=== PATIENT | male | born 2000 | race Caucasian/White ===

== ENCOUNTER 2022-07-25 10:33 | Emergency (ER) | payer BC, SELFPAY ==
--- NOTE | 2022-07-25 10:34 | ED.ANXIETY ---
HPI - Anxiety General Chief Complaint: Anxiety Stated Complaint: ANXIETY Time Seen by Provider: 07/25/22 10:50 Source: patient Mode of arrival: ambulatory Limitations: no limitations History of Present Illness HPI narrative: 21-year-old female presents with concern for anxiety. She reports she has been having panic attacks at least weekly all the way up to 2-3 times daily for several months. She reports she was seen at a mental health clinic and was prescribed buspirone. Reports that did not improve her symptoms. She reports her episodes last anywhere from 2 minutes to 15 minutes. She reports she has chest pain and shortness of breath during the symptoms. She reports she is transgender and is transitioning and has been taking estrogen. She reports has been taking estrogen for approximately 5 years but approximately 2 months ago she started using a different form of injectable estrogen. She reports she has spoken with her automatic lathe operator about the anxiety and they told her her estrogen levels appear normal. MD complaint: anxiety Related Data Home Medications Medication Instructions Recorded Confirmed estradiol 2 mg tablet mg 07/25/22 estradiol valerate 20 mg/mL mg IM 07/25/22 intramuscular oil Allergies Allergy/AdvReac Type Severity Reaction Status Date / Time No Known Allergies Allergy Mild Unverified 09/11/09 17:14 Review of Systems Review of Systems: CONSTITUTIONAL: Denies malaise, chills, sweats, or fever. CARDIOVASCULAR: Denies current chest pain, palpitations, or edema. RESPIRATORY: Denies current dyspnea. PSYCHIATRIC: Reports anxiety All systems reviewed & are unremarkable except as noted in HPI and below PMFSH Social History Social History Smoking status: Never smoker Alcohol intake: never Comments At time of signature, agree with nursing past medical, surgical, social and family history. There is no relevant family history pertinent to the presenting complaint Exam Narrative: GENERAL: Well-appearing, well-nourished, and in no acute distress. HEAD: Normocephalic, atraumatic. EYES: PERRLA, sclera clear ENT: Nares clear. Mucous membranes moist. NECK: Supple. CHEST: No respiratory distress. Clear to auscultation. No bony deformities, no asymmetry. Speaks in full sentences. HEART: Regular rate and rhythm. No murmur heard. SKIN: Warm, dry, no visible rash. NEURO: Alert and oriented x3. PSYCH: Appears tearful Course Course Emergency Course: The patient need for follow-up for ongoing care for her anxiety, she is agreeable Patient is aware of diagnosis, understands and agrees to treatment plan. Anticipatory guidance given. Patient agrees to follow-up as directed and is aware of reasons to seek care at the emergency department. Portions of this record may have been created with voice recognition software Level of Care: Express Care Visit Vital Signs Vital signs: Reviewed. MDM - Anxiety MDM Narrative Medical decision making narrative: Exam findings show no acute concerns or changes; patient is non-toxic appearing and is in no distress. Patient is appropriate for outpatient treatment and follow-up. Differential Diagnosis Differential diagnosis: Likely panic disorder and acute anxiety Critical Care Time Critical Care Time Critical Care Time: No Discharge Plan Discharge Clinical Impression: Anxiety Patient Disposition: Home, Self-Care Condition: Stable Instructions: Anxiety (ED) Additional Instructions: Make a follow-up appointment with your primary care provider for further evaluation and treatment of your anxiety. If you have any chest pain or shortness of breath that is not resolving you should go to the emergency room. Take hydroxyzine as prescribed. [place] lorazepam for episodes that are not resolving on their own or with hydroxyzine. Having an established primary care provider is essential to your health. Please call [phone] for help finding a primary
[2022-07-25 10:40] VITALS: BP 110/70; PULSE 79; RESP 16; TEMP 37.3; O2SAT 98
== END 2022-07-25 11:15 | disposition home or self-care (01) ==
PROVIDERS: Emergency Provider Nurse Practitioner; PCP Family Medicine
DX: F41.9 Anxiety disorder, unspecified (principal)
CPT/HCPCS: 99203; G0463

== ENCOUNTER 2022-07-27 15:36 | Outpatient (CLI) | payer BC, SELFPAY ==
[2022-07-27 20:31] LABS: HIV 1/2 Ab P24 Ag Result Negative (Negative)
[2022-07-28 16:51] LABS: Rapid Plasma Reagin Non-Reactive (NonReactive)
== END 2022-07-27 15:37 | disposition home or self-care (01) ==
PROVIDERS: PCP Emergency Medicine; Visit Provider Emergency Medicine
DX: Z11.3 Encounter for screening for infections with a predominantly sexual mode of transmission (principal)
CPT/HCPCS: 36415; 86592; 86703; 87491; 87591; G0432

== ENCOUNTER 2022-09-13 15:30 | Outpatient (CLI) | payer BC, SELFPAY ==
[2022-09-13 19:38] LABS: Alanine Aminotransferase 30 U/L (6-50); Albumin Level 4.5 g/dL (3.5-5.1); Alkaline Phosphatase 71 U/L (38-126); Anion Gap 16 mmol/L (8-16); Aspartate Amino Transferase 30 U/L (17-59); Bilirubin,Total 0.3 mg/dL (0.2-1.3); Blood Urea Nitrogen 8 mg/dL (9-20); CRP < 0.5 mg/dL (<1.0); Calcium 9.1 mg/dL (8.4-10.2); Carbon Dioxide 25 mmol/L (22-30); Chloride 101 mmol/L (98-107); Estimated Glomerular Filt Rate > 60; Glucose 118 mg/dL (65-110); Potassium 3.7 mmol/L (3.4-5.0); Sodium 142 mmol/L (137-145)
[2022-09-13 19:54] LABS: Basophils Absolute Auto 0.1 K/mm3 (0.0-0.1); Basophils Percent Auto 0.5 % (0.2-1.2); Eosinophils Absolute Auto 0.2 K/mm3 (0-0.3); Eosinophils Percent Auto 2.2 % (0-4.4); Hemoglobin 11.9 g/dL (14.0-18.0); Immature Granulocyte Absolute 0.03 K/mm3 (0.00-0.031); Immature Granulocyte Percent A 0.3 % (0-0.5); Lymphocytes Absolute Auto 2.81 K/mm3 (0.9-3.2); Lymphocytes Percent Auto 25.5 % (18.3-44.2); Mean Corpuscular HGB Conc 33.1 g/dl (32-36); Mean Corpuscular Hemoglobin 29.6 pg (26-34); Mean Corpuscular Volume 89.6 fl (80-100); Mean Platelet Volume 9.9 fl (7.4-10.4); Monocytes Absolute Auto 0.9 K/mm3 (0.1-0.6); Monocytes Percent Auto 7.9 % (2.6-8.5); Neutrophils Percent Auto 63.6 % (45.5-73.1); Platelet Count Result 378 k/mm3 (150-375); Red Blood Count 4.02 M/mm3 (4.6-6.20); Red Cell Distribution Width 13.1 % (11.5-14.5)
[2022-09-13 20:25] LABS: Erythrocyte Sedimentation Rate 15 mm/hr (0-20)
== END 2022-09-13 15:31 | disposition home or self-care (01) ==
LOC: ANHGOSHLAB 15:31
PROVIDERS: PCP Emergency Medicine; Visit Provider Emergency Medicine
DX: M26.69 Other specified disorders of temporomandibular joint (principal); R51.9 Headache, unspecified
CPT/HCPCS: 36415; 80053; 85025; 85652; 86140

== ENCOUNTER 2022-09-14 16:00 | Outpatient (CLI) | payer BC, SELFPAY ==
[2022-09-14 18:43] LABS: Basophils Absolute Auto 0.1 K/mm3 (0.0-0.1); Basophils Percent Auto 0.5 % (0.2-1.2); Eosinophils Absolute Auto 0.4 K/mm3 (0-0.3); Eosinophils Percent Auto 3.5 % (0-4.4); Hematocrit 34.8 % (42.0-52.0); Hemoglobin 11.6 g/dL (14.0-18.0); Immature Granulocyte Absolute 0.03 K/mm3 (0.00-0.031); Immature Granulocyte Percent A 0.3 % (0-0.5); Lymphocytes Absolute Auto 3.06 K/mm3 (0.9-3.2); Mean Corpuscular HGB Conc 33.3 g/dl (32-36); Mean Corpuscular Hemoglobin 30.1 pg (26-34); Mean Corpuscular Volume 90.4 fl (80-100); Mean Platelet Volume 9.5 fl (7.4-10.4); Monocytes Absolute Auto 0.9 K/mm3 (0.1-0.6); Monocytes Percent Auto 8.1 % (2.6-8.5); Neutrophils Absolute Auto 6.5 K/mm3 (1.3-6.7); Neutrophils Percent Auto 59.6 % (45.5-73.1); Platelet Count Result 372 k/mm3 (150-375); Red Blood Count 3.85 M/mm3 (4.6-6.20); Red Cell Distribution Width 13.2 % (11.5-14.5); White Blood Count 10.9 K/mm3 (4.5-10.0)
[2022-09-14 19:13] LABS: Iron 84 ug/dL (49-181)
[2022-09-14 19:45] LABS: Percent Iron Saturation 28 % (20-50)
== END 2022-09-14 16:01 | disposition home or self-care (01) ==
LOC: ANHGOSHLAB 16:01
PROVIDERS: PCP Emergency Medicine; Visit Provider Emergency Medicine
DX: D64.9 Anemia, unspecified (principal)
CPT/HCPCS: 36415; 82728; 83540; 83550; 85025

== ENCOUNTER 2022-09-21 12:40 | Outpatient (CLI) | payer BC, SELFPAY ==
--- NOTE | ~2022-09-21 | CT_ITS ---
EXAMINATION: CT brain wo con DATE: 09/21/2022 12:59 INDICATION: Headaches for 3 weeks TECHNIQUE: Computed tomography (CT) of the head was performed without intravenous contrast. The mA wa s adjusted according to patient size. Iterative reconstruction technique was employed. Exam dose: 59 9.57 mGy-cm total exam DLP. COMPARISON: None FINDINGS: No intracranial mass lesion or hemorrhage or cerebrovascular accident. No midline shift or mass effect. Normal saleh-white matter differentiation. Normal size of the ventricles. No subdural or epidural hematoma. Orbital contents appear normal. There is soft tissue thickening in a single right ethmoid air cell. The included paranasal sinuses an d mastoid air cells are otherwise unremarkable. No fracture or bone destruction of the cranial vault. IMPRESSION: No intracranial abnormality Reviewed, dictated and finalized at [facility]. Reviewed, dictated and finalized at [facility]. IMPRESSION: No intracranial abnormality
== END 2022-09-21 12:41 ==
PROVIDERS: PCP Emergency Medicine; Visit Provider Emergency Medicine
DX: R51.9 Headache, unspecified (principal)
CPT/HCPCS: 70450

== ENCOUNTER 2023-01-24 15:58 | Outpatient (CLI) | payer MEDICAID, SELFPAY ==
[2023-01-24 16:11] LABS: Basophils Absolute Auto 0.1 K/mm3 (0.0-0.1); Basophils Percent Auto 0.5 % (0.2-1.2); Eosinophils Absolute Auto 0.4 K/mm3 (0-0.3); Eosinophils Percent Auto 3.1 % (0-4.4); Hemoglobin 11.9 g/dL (14.0-18.0); Immature Granulocyte Absolute 0.04 K/mm3 (0.00-0.031); Immature Granulocyte Percent A 0.3 % (0-0.5); Lymphocytes Absolute Auto 2.82 K/mm3 (0.9-3.2); Lymphocytes Percent Auto 23.2 % (18.3-44.2); Mean Corpuscular Hemoglobin 30.9 pg (26-34); Mean Corpuscular Volume 90.9 fl (80-100); Monocytes Percent Auto 7.9 % (2.6-8.5); Neutrophils Absolute Auto 7.9 K/mm3 (1.3-6.7); Platelet Count Result 366 k/mm3 (150-375); Red Blood Count 3.85 M/mm3 (4.6-6.20); Red Cell Distribution Width 13.1 % (11.5-14.5); Reticulocyte Hemoglobin Conten 33.5 pg (28.2-35.7); Reticulocyte Percent 1.62 % (0.7-4.3); Reticulocytes Absolute 0.06 B/L (32.2-175.7); White Blood Count 12.1 K/mm3 (4.5-10.0)
[2023-01-24 16:42] LABS: Iron 44 ug/dL (49-181)
[2023-01-24 16:45] LABS: Alanine Aminotransferase 21 U/L (6-50); Albumin Level 4.5 g/dL (3.5-5.1); Alkaline Phosphatase 85 U/L (38-126); Anion Gap 7 mmol/L (8-16); Aspartate Amino Transferase 24 U/L (17-59); Bilirubin,Total 0.3 mg/dL (0.2-1.3); Blood Urea Nitrogen 10 mg/dL (9-20); Calcium 9.3 mg/dL (8.4-10.2); Carbon Dioxide 28 mmol/L (22-30); Chloride 104 mmol/L (98-107); Estimated Glomerular Filt Rate > 60; Glucose 90 mg/dL (65-110); Potassium 4.4 mmol/L (3.4-5.0); Sodium 139 mmol/L (137-145)
[2023-01-24 16:53] LABS: Percent Iron Saturation 14 % (20-50)
[2023-01-24 17:50] LABS: Folic Acid 15.3 ng/mL (2.76->20)
[2023-01-27 03:34] LABS: Methylmalonic Acid 132 nmol/L (87-318)
== END 2023-01-24 15:59 | disposition home or self-care (01) ==
LOC: ANHLAB 16:00
PROVIDERS: PCP Emergency Medicine; Visit Provider Internal Medicine Hematology & Oncology
DX: D64.9 Anemia, unspecified (principal)
CPT/HCPCS: 36415; 80053; 82607; 82728; 82746; 83540; 83550; 83921; 84443; 85025; 85046

== ENCOUNTER 2023-07-02 15:05 | Outpatient (CLI) | payer OTHER, SELFPAY ==
[2023-07-02 15:22] LABS: Basophils Absolute Auto 0.1 K/mm3 (0.0-0.1); Basophils Percent Auto 0.5 % (0.2-1.2); Eosinophils Absolute Auto 0.4 K/mm3 (0-0.3); Eosinophils Percent Auto 3.5 % (0-4.4); Hemoglobin 11.9 g/dL (14.0-18.0); Immature Granulocyte Absolute 0.02 K/mm3 (0.00-0.031); Immature Granulocyte Percent A 0.2 % (0-0.5); Lymphocytes Absolute Auto 2.41 K/mm3 (0.9-3.2); Lymphocytes Percent Auto 21.3 % (18.3-44.2); Mean Corpuscular HGB Conc 33.1 g/dl (32-36); Mean Corpuscular Hemoglobin 29.5 pg (26-34); Mean Corpuscular Volume 89.3 fl (80-100); Mean Platelet Volume 9.1 fl (7.4-10.4); Monocytes Absolute Auto 0.9 K/mm3 (0.1-0.6); Monocytes Percent Auto 7.7 % (2.6-8.5); Neutrophils Absolute Auto 7.5 K/mm3 (1.3-6.7); Neutrophils Percent Auto 66.8 % (45.5-73.1); Platelet Count Result 407 k/mm3 (150-375); Red Blood Count 4.03 M/mm3 (4.6-6.20); Red Cell Distribution Width 13.4 % (11.5-14.5); White Blood Count 11.3 K/mm3 (4.5-10.0)
[2023-07-02 16:42] LABS: Iron 65 ug/dL (49-181)
[2023-07-02 16:51] LABS: Percent Iron Saturation 19 % (20-50)
== END 2023-07-02 15:06 | disposition home or self-care (01) ==
LOC: ANHLAB 15:07
PROVIDERS: PCP Emergency Medicine; Visit Provider Internal Medicine Hematology & Oncology
DX: D64.9 Anemia, unspecified (principal)
CPT/HCPCS: 36415; 82728; 83540; 83550; 85025

== ENCOUNTER 2023-07-31 21:51 | Emergency (ER) | payer OTHER, SELFPAY ==
[2023-07-31 21:53] VITALS: BP 133/75; PULSE 112; RESP 19; TEMP 37.8; O2SAT 97
--- NOTE | 2023-08-01 02:02 | PC.NURSE ---
Patient's boyfriend approached nurses station and informed scenario writer that patient would like to go home. Patient alert and orientated x4 upon leaving the ED. Patient ambulatory out ED exit.
== END 2023-08-01 02:41 | disposition left against medical advice (07) ==
PROVIDERS: PCP Emergency Medicine
DX: G43.909 Migraine, unspecified, not intractable, without status migrainosus (principal)
CPT/HCPCS: 99199

== ENCOUNTER 2023-10-23 07:52 | Outpatient (CLI) | payer OTHER, SELFPAY ==
[2023-10-23 19:35] LABS: Cholesterol 185 mg/dL (0-200); HDL Direct 63 mg/dL; Triglycerides 78 mg/dL (<150)
[2023-10-23 19:46] LABS: LDL Cholesterol Direct 90 mg/dL
[2023-10-23 19:50] LABS: Alanine Aminotransferase 19 U/L (6-50); Albumin Level 4.7 g/dL (3.5-5.1); Alkaline Phosphatase 95 U/L (38-126); Anion Gap 10 mmol/L (8-16); Aspartate Amino Transferase 27 U/L (17-59); Bilirubin,Total 0.5 mg/dL (0.2-1.3); Blood Urea Nitrogen 8 mg/dL (9-20); Calcium 9.5 mg/dL (8.4-10.2); Carbon Dioxide 25 mmol/L (22-30); Chloride 101 mmol/L (98-107); Estimated Glomerular Filt Rate > 60; Glucose 94 mg/dL (65-110); Potassium 4.4 mmol/L (3.4-5.0); Sodium 136 mmol/L (137-145)
[2023-10-23 19:55] LABS: Hematocrit 38.2 % (42.0-52.0)
[2023-10-23 22:19] LABS: Cortisol Random 0.72 ug/dL
[2023-10-23 22:34] LABS: Thyroid Stimulating Hormone Reflex 0.613 uIU/mL (0.465-4.68)
[2023-10-27 14:02] LABS: Testosterone Total 25 ng/dL (250-1100)
[2023-10-31 14:11] LABS: Dexamethasone 242 ng/dL
== END 2023-10-23 07:53 | disposition home or self-care (01) ==
LOC: ANHGOSHLAB 07:56
PROVIDERS: PCP Emergency Medicine
DX: F64.0 Transsexualism (principal); D50.9 Iron deficiency anemia, unspecified; R63.5 Abnormal weight gain; Z79.890 Hormone replacement therapy; Z79.899 Other long term (current) drug therapy
CPT/HCPCS: 36415; 80053; 80061; 80299; 82533; 84403; 84443; 85014; 85018

== ENCOUNTER 2023-12-19 13:56 | Emergency (ER) | payer OTHER, SELFPAY ==
[2023-12-19 14:10] VITALS: BP 116/72; PULSE 101; RESP 16; TEMP 36.2; O2SAT 100
--- NOTE | 2023-12-19 14:10 | ED.NAVMDI ---
HPI - Nausea/Vomiting/Diarrhea General Chief complaint: Nausea/Vomiting/Diarrhea Stated complaint: VOMITING/BODY ACHES/STOMACH PAIN Time Seen by Provider: 12/19/23 14:10 Source: patient Mode of arrival: ambulatory Limitations: no limitations History of Present Illness HPI Narrative: 23-year-old female presents with complaint fatigue, body aches, chills, nausea, vomiting and diarrhea for 2 days. Has tried [id number] Prevacid, Tums and Pepto-Bismol with no relief nausea and vomiting. Reports 2 episodes yesterday of diarrhea, started Imodium. Able to keep down fluids but has not really had appetite. Patient reports history of acid reflux. States ?did not really eat any food but I feel caused a indigestion flare?. No abdominal pain at this time. All systems reviewed and negative except as noted above. Related Data Home Medications Medication Instructions Recorded Confirmed estradiol valerate 20 mg/mL 20 mg IM DIRECTED 07/25/22 12/19/23 intramuscular oil ferrous sulfate 325 mg (65 mg 325 mg PO DAILY 11/01/23 12/19/23 iron) tablet progesterone micronized 100 mg 100 mg PO QAM 11/01/23 12/19/23 capsule Allergies Allergy/AdvReac Type Severity Reaction Status Date / Time No Known Allergies Allergy Mild Verified 12/19/23 14:08 Review of Systems Review of Systems: CONSTITUTIONAL: Denies fever. Reports chills, or sweats. EYES: Denies visual changes, redness, or discharge. ENT: Denies rhinorrhea, congestion, sore throat, or otalgia. CARDIOVASCULAR: Denies chest pain, palpitations, or edema. RESPIRATORY: Denies cough or dyspnea. GASTROINTESTINAL: Denies abdominal pain. Reports nausea, vomiting, or diarrhea. GENITOURINARY: Denies dysuria or hematuria. SKIN: Denies rash or itching. MUSCULOSKELETAL: Denies back pain, joint pain. Reports myalgia. NEUROLOGIC: Reports headache. Denies numbness, or weakness. PSYCHIATRIC: Denies anxiety or depression. All other systems reviewed are negative, except as documented in HPI. [facility] Family History Family History Father Acute myocardial infarction Alcoholism Diabetes mellitus Sibling Depression Anxiety Alcoholism Social History Social History Social History: Caffeine-100mg a day Smoking status: Never smoker Alcohol intake: current Alcohol use details: once to twice a month- spirits Lack of Transportation: No Lack of Food: Never True Current Housing: I Have Housing Concerned About Future Housing: No Difficulty Paying Gas/Electric Bills: No Difficulty Paying for Meds: No Currently Unemployed: YES Education: High School Diploma/GED Agree to blood products: Yes Comments At time of signature, agree with nursing past medical, surgical, social and family history. There is no relevant family history pertinent to the presenting complaint. Exam Narrative: GENERAL: This is a well-nourished, well-developed patient, patient ill-appearing but no acute distress. HEAD: normocephalic, atraumatic. EYES: PERRL. Sclera clear/white. Vision is grossly intact. EARS: External ears normal, auditory canals clear and without drainage, TMs normal without perforation. Hearing grossly intact. NOSE: External nose normal with no obvious nasal discharge, nares without redness, no rhinorrhea. THROAT: Mucous membranes moist, posterior pharynx clear. NECK: Neck supple, non-tender without lymphadenopathy, masses or thyromegaly. CARDIOVASCULAR: Regular rate and rhythm without murmurs, gallops, or rubs. RESPIRATORY: Clear to auscultation. Breath sounds equal bilaterally. No wheezes, rales, or rhonchi. GASTROINTESTINAL: Abdomen soft, non-tender, nondistended. Bowel sounds are active. No hepato-splenomegaly, or palpable masses. No guarding. SKIN: warm, Dry, intact with no suspicious lesions or rash, good texture and turgor. NEURO: awake, alert, and orien
[2023-12-19] MEDS: ONDANSETRON HCL ODT 4 MG TABLET SUBLINGUAL (14:32)
== END 2023-12-19 14:58 | disposition home or self-care (01) ==
PROVIDERS: Emergency Provider Nurse Practitioner Family; PCP Emergency Medicine
DX: K30 Functional dyspepsia (principal); Z20.822 Contact with and (suspected) exposure to COVID-19
CPT/HCPCS: 87426; 87804; 99213; A9270; G0463

== ENCOUNTER 2023-12-20 23:01 | Emergency (ER) | payer OTHER, SELFPAY ==
[2023-12-20 23:13] VITALS: BP 101/58; PULSE 126; RESP 14; TEMP 37.2; O2SAT 99
[2023-12-20 23:17] LABS: Basophils Percent Auto 0.4 % (0.2-1.2); Eosinophils Absolute Auto 0.1 K/mm3 (0-0.3); Eosinophils Percent Auto 0.9 % (0-4.4); Hematocrit 36.6 % (42.0-52.0); Hemoglobin 12.2 g/dL (14.0-18.0); Immature Granulocyte Absolute 0.02 K/mm3 (0.00-0.031); Immature Granulocyte Percent A 0.2 % (0-0.5); Lymphocytes Absolute Auto 1.35 K/mm3 (0.9-3.2); Lymphocytes Percent Auto 12.2 % (18.3-44.2); Mean Corpuscular HGB Conc 33.3 g/dl (32-36); Mean Corpuscular Hemoglobin 29.7 pg (26-34); Mean Corpuscular Volume 89.1 fl (80-100); Mean Platelet Volume 9.4 fl (7.4-10.4); Monocytes Absolute Auto 0.2 K/mm3 (0.1-0.6); Monocytes Percent Auto 2.2 % (2.6-8.5); Neutrophils Absolute Auto 9.3 K/mm3 (1.3-6.7); Neutrophils Percent Auto 84.1 % (45.5-73.1); Platelet Count Result 333 k/mm3 (150-375); Red Blood Count 4.11 M/mm3 (4.6-6.20); Red Cell Distribution Width 13.3 % (11.5-14.5)
[2023-12-20 23:32] LABS: Alanine Aminotransferase 31 U/L (6-50); Albumin Level 3.5 g/dL (3.5-5.1); Alkaline Phosphatase 75 U/L (38-126); Anion Gap 10 mmol/L (8-16); Aspartate Amino Transferase 43 U/L (17-59); Bilirubin,Total 0.4 mg/dL (0.2-1.3); Blood Urea Nitrogen 6 mg/dL (9-20); Calcium 8.6 mg/dL (8.4-10.2); Carbon Dioxide 25 mmol/L (22-30); Chloride 103 mmol/L (98-107); Estimated CRCL calculation 130 ml/min; Estimated Glomerular Filt Rate > 60; Glucose 121 mg/dL (65-110); Lipase 44 U/L (23-300); Potassium 3.4 mmol/L (3.4-5.0); Sodium 138 mmol/L (137-145)
[2023-12-20 23:43] LABS: Appearance Urine Clear (Clear); Bacteria Urine None Seen /hpf; Bilirubin Urine Negative (Negative); Blood Urine Negative (Negative); Color Urine Yellow (Yellow); Glucose Urine UA Negative (Negative); Ketones Urine 1+ mg/dL (Negative); Leukocyte Esterase Ur 1+ LEU/UL (Negative); Nitrate Urine Negative (Negative); Non Pathogenic Casts 0-2; Protein Urine Negative (Negative); RBC Urine 0-2 /hpf (0-2); Specific Grav Ur 1.015 (1.001-1.035); Squamous Epithelial Cell Urine Occasional /hpf (Few); Urobilinogen Urine 0.2 mg/dL (<2.0); WBC Urine 21-50 /hpf
[2023-12-20 23:45] LABS: Add Urine Microscopic? YES
== END 2023-12-21 00:44 | disposition left against medical advice (07) ==
PROVIDERS: Emergency Provider Emergency Medicine; PCP Emergency Medicine
DX: R10.9 Unspecified abdominal pain (principal)
CPT/HCPCS: 36415; 80053; 81001; 83690; 85025; 87086; 99199

== ENCOUNTER 2025-04-05 17:37 | Emergency (ER) | payer OTHER, SELFPAY ==
[2025-04-05 17:49] VITALS: BP 121/74; PULSE 76; RESP 16; TEMP 36.2; O2SAT 100
--- NOTE | 2025-04-05 17:59 | ED_ITS ---
HPI - Head Injury General Chief complaint: Head Injury Stated complaint: HEAD INJURY Source: patient Mode of arrival: ambulatory Limitations: no limitations History of Present Illness HPI Narrative: Patient is a 24-year-old female who presents the clinic with complaints of a head injury. She hit her head off a cabinet at work. She reports that she had some nausea and vomiting later this afternoon and endores seeing more spots than her usual. Denies any vision changes. Related Data Home Medications Medication Instructions Recorded Confirmed Last Taken Type estradiol valerate 20 mg/mL 20 mg IM DIRECTED 07/25/22 04/05/25 Unknown History intramuscular oil ferrous sulfate 325 mg (65 mg 325 mg PO DAILY 11/01/23 12/19/23 Unknown History iron) tablet progesterone micronized 100 mg 100 mg PO QAM 11/01/23 12/19/23 Unknown History capsule Allergies Allergy/AdvReac Type Severity Reaction Status Date / Time No Known Allergies Allergy Mild Verified 04/05/25 17:49 Review of Systems Review of Systems: CONSTITUTIONAL: Denies body aches, fever, chills, or sweats. EYES: Denies visual changes, redness, or discharge. ENT: Denies rhinorrhea, congestion, sore throat, or otalgia. CARDIOVASCULAR: Denies chest pain, palpitations, or edema. RESPIRATORY: Denies cough or dyspnea. GASTROINTESTINAL: Denies abdominal pain. Reports nausea and vomiting. GENITOURINARY: Denies dysuria or hematuria. SKIN: Denies rash, itching, or wounds. MUSCULOSKELETAL: Denies back pain, joint pain, or myalgia. Reports pain to top of head. NEUROLOGIC: Denies headache, numbness, tingling, or weakness. PSYCH: Denies depression or anxiety. All systems reviewed & are unremarkable except as noted in HPI and below [facility] Family History Family History Father Acute myocardial infarction Alcoholism Diabetes mellitus Sibling Depression Anxiety Alcoholism Social History Social History Social History: Caffeine-100mg a day Smoking status: Never smoker Alcohol intake: current Alcohol use details: once to twice a month- spirits Lack of Transportation: No Lack of Food: Never True Current Housing: I Have Housing Concerned About Future Housing: No Difficulty Paying Gas/Electric Bills: No Difficulty Paying for Meds: No Currently Unemployed: YES Education: High School Diploma/GED Agree to blood products: Yes Comments At time of signature, I have reviewed and agree with nursing past medical, surgical, social and family history unless otherwise noted. Please see nursing chart for further information. There is no relevant family history pertinent to the presenting complaint. Exam Narrative: GENERAL: Well-appearing, well-nourished, and in no acute distress. HEAD: Normocephalic, atraumatic. No skull depression or hematoma noted to head. EYES: EOMI. No redness or drainage. Conjunctivae normal. ENT: Mucous membranes pink and moist. No rhinorrhea. TMs normal bilaterally. Throat normal. Uvula midline. NECK: Normal AROM. Supple. No lymphadenopathy. CHEST: No respiratory distress. Clear to auscultation. HEART: Regular rate and rhythm. No murmur appreciated. Normal peripheral pulses. ABDOMEN: Soft, nontender, nondistended, normal active bowel sounds. MUSCULOSKELETAL: No bony tenderness. EXTREMITIES: Normal range of motion. No edema. SKIN: Warm, dry, no rash. Capillary refill normal. Normal skin turgor. NEURO: No focal deficits. Alert and oriented x3. Gait steady. PSYCH: Normal affect. No signs of depression or anxiety. Course Course Level of Care: Express Care Visit Vital Signs Vital signs: Vital Signs Temperature 97.2 F L 04/05/25 17:49 Pulse Rate 76 04/05/25 17:49 Respiratory Rate 16 04/05/25 17:49 Blood Pressure 121/74 04/05/25 17:49 Pulse Oximetry 100 04/05/25 17:49 Temperature 97.2 F L 04/05/25 17:49 Pulse Rate 76 04/05/25 17:49 Respiratory Rate 16 04/05/25 17:49 Blood Pressure 121/74 04/05/25 17:49 Pulse Oximetry 100 04/05/25 17:49 Review MDM - Head Injury MDM Narrative Medical decision making narrative: Discussed physical exam findings. Neuro exam WNL. No skull depression or hematoma noted to head. Advised supportive measures and signs/symptoms to go to the ER. Pt is appropriate for outpatient treatment and follow up. Differential Diagnosis Differential diagnosis: Likely concussion without loss of consciousness and closed head injury Critical Care Time Critical Care Time Critical Care Time: No Discharge Plan Discharge Clinical Impression: Head injury Qualifiers: Encounter type: initial encounter Qualified Code(s): S09.90XA - Unspecified injury of head, initial encounter Patient Disposition: Home Condition: Stable Instructions: Concussion (ED) Additional Instructions: Based on the events which brought you to the ER today, it is possible that you may have a concussion. A concussion occurs when enough force shakes the brain and disrupts how the brain functions. You may experience headaches, sensitivity to light/noise, dizziness, cognitive slowing, difficulty concentrating / remembering, trouble sleeping and drowsiness. These symptoms may last anywhere from hours/days to potentially weeks/months. While these symptoms are very frustrating and sometimes debilitating, they will improve over time. We will give you a list of neurologists, they are the specialists for head injuries. Avoid physical activities (sports, gym, and exercise) and limit reading, texting, TV watching, computer use, video games, etc. After-school activities and work may need to be modified to avoid increasing symptoms. We recommend against driving until until all symptoms have resolved. Tylenol every 6 hours as needed for pain control; taking anti-inflammatory medication (Motrin/Advil/Ibuprofen) is not advised. Come back to the ER right away if you are having repeated episodes of vomiting, severe/worsening headache/dizziness or any other symptom that alarms you. We recommended that someone stay with you for the next 24 hours to monitor for these worrisome symptoms. Patient Language: Upper Sorbian Prescriptions: No Action dicyclomine 20 mg tablet 20 mg PO Q6-8H PRN (Reason: abdominal pain) Qty: 20 0RF ondansetron 4 mg tablet,disintegrating 4 mg PO Q8H PRN (Reason: nausea and vomiting) Qty: 12 0RF famotidine [Pepcid] 20 mg tablet 20 mg PO BID PRN (Reason: acid reflux) Qty: 30 0RF estradiol valerate 20 mg/mL oil 20 mg IM DIRECTED fluticasone propionate [Flonase Allergy Relief] 50 mcg/actuation spray,suspension 2 spray intranasal DAILY Qty: 16 2RF Rx Instructions: administer into each nostril progesterone micronized 100 mg capsule 100 mg PO QAM Rx Instructions: off 7 days; repeat cycle ferrous sulfate 325 mg (65 mg iron) tablet 325 mg PO DAILY hydroxyzine HCl 25 mg tablet 25 mg PO QID PRN (Reason: anxiety) Qty: 90 1RF venlafaxine [Effexor XR] 75 mg capsule,extended release 24hr 75 mg PO DAILY Qty: 30 0RF Follow-up/Referrals: Payal Loera MD [Primary Care Provider] - Stand Alone Forms: Work/School Release IP
== END 2025-04-05 18:06 | disposition home or self-care (01) ==
PROVIDERS: PCP Family Medicine
DX: S09.90XA Unspecified injury of head, initial encounter (principal); W22.8XXA Striking against or struck by other objects, initial encounter
CPT/HCPCS: 99213; G0463

== ENCOUNTER 2025-07-23 11:29 | Outpatient (CLI) | payer OTHER, SELFPAY ==
--- OUTSIDE RECORDS SUMMARY | 2025-07-23 12:08 | XMS_ITS | Clinical Summary ---
Author Organization [facility] Sterlingarturohelga villarreal [facility] Address [address] [place] [address] Care Team Providers Care Deburring And Tooling Machine Operator Name Role Phone Matthieu Pond MD Primary Care Provider [phone] Allergies No known active allergies Medications estradiol valerate (DELESTROGEN) 20 mg/mL Oil INJECT 0.5ML INTRAMUSCULARLY EVERY 7 DAYS INSTRUCTED 01/22/20 23 Active spironolactone (ALDACTONE) 50 mg tablet Take 50 mg by mouth daily. Active progesterone micronized (PROMETRIUM) 100 mg Capsule Take by mouth daily. Active estradioL (ESTRACE) 2 mg tablet Take 2 mg by mouth daily. Active venlafaxine (EFFEXOR XR) 37.5 mg Extended Release 24 hour capsule Take 75 mg by mouth daily. 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 Gender Identity Not on file Sexual Orientation Not on file Last Filed Vital Signs Vital Sign Reading Time Taken Comments Blood Pressure 117/75 07/03/2023 2:27 PM CDT Pulse 75 07/03/2023 2:27 PM CDT Temperature 36 C (96.8 F) 07/03/2023 2:27 PM CDT Respiratory Rate 10 07/03/2023 2:27 PM CDT Oxygen Saturation 98% 07/03/2023 2:27 PM CDT Inhaled Oxygen Concentration - - Weight 80.7 kg (178 lb) 07/03/2023 2:27 PM CDT Height 167.6 cm (5' 6) 07/03/2023 2:27 PM CDT Body Mass Index 28.73 07/03/2023 2:27 PM CDT Plan of Treatment Health Maintenance Due Date Last Done Comments HPV VACCINES (1 - 3-dose series) 2013 DTAP/TDAP/TD VACCINES (1 - Tdap) 2017 HEPATITIS B VACCINES (1 of 3 - 19+ 3-dose series) 09/20 CERVICAL CANCER SCREENING 2019 HPV/Cotest (21-29) 2019 PAP SMEAR 2019 INFLUENZA VACCINE (#1) 2025 Insurance [employer] [place] Care Teams Deburring And Tooling Machine Operator Relationship Specialty Start Date End Date Matthieu Pond MD PCP - General Family Practice 01/24/23
--- OUTSIDE RECORDS SUMMARY | 2025-07-23 12:08 | XMS_ITS | Clinical Summary ---
Author Organization [facility] Address [address] [place] [address] Care Team Providers Care Powerhouse Attendant Name Role Phone Wilbur Loera MD Primary Care Provider [phone] Allergies No known active allergies Medications syringe, disposable, (BD Luer-Doris Syringe) 1 mL syringeIndicati ons:Hormone replacement therapy To inject testosterone 10 each 11 2 Active needle, disp, 25 gauge (BD Regular Bevel [place]) 25 gauge x 5/8 needleIndicatio ns:Hormone replacement therapy To inject estradiol 10 each 11 2 Active BD Tuberculin Syringe 1 mL 25 gauge x 5/8 syringe USE WITH INJECTIONS INSTRUCTED 2 Active hydrOXYzine (ATARAX) 25 mg tablet TAKE 1 TABLET BY MOUTH 4 TIMES DAILY NEEDED FOR ANXIETY 2 Active fluticasone propionate (FLONASE) 50 mcg/actuation nasal spray Administer 1 spray into each nostril as needed for allergies 3 Active venlafaxine XR (EFFEXOR-XR) 37.5 mg 24 hr capsule Take 1 capsule (37.5 mg total) by mouth daily 3 Active needle, disp, 18 G (BD Regular Bevel [place]) 18 gauge x 1 needleIndicatio ns:Gender dysphoria,Hormo ne replacement therapy USE TO DRAW UP ESTRADIOL ONCE WEEKLY 15 each 2 3 Active progesterone (PROMETRIUM) 200 mg capsuleIndicati ons:Gender dysphoria Take 1 capsule (200 mg total) by mouth daily 90 capsule 2 3 Active BD Luer-Doris Syringe 3 mL 25 gauge x 1 syringe Use to inject insulin every 7 days. 10 each 3 4 Active estradiol valerate (DELESTROGEN) 20 mg/mL injectionIndica tions:Hormone replacement therapy Inject 0.2 mL (4 mg total) into the muscle as instructed every 7 days 5 mL 2 5 Active Active Problems Problem Noted Date Diagnosed Date Hormone replacement therapy (HRT) 07/06/2021 Gender dysphoria 01/12/2021 [id number] transgender person 01/12/2021 Encounters Date Type Department Care Team Description 06/08/2025 Telephone [facility] Medicine Endocrinology Metabolism and Lipid [address] [place] [address] [place] [address] Gucci Catalan RN Prior Auth (Estradiol Valerate) from Last 3 Months Immunizations Immunization Administration Dates Next Due Influenza, Unspecified 08/19/2020 Family History Medical History Relation Name Comments Diabetes Father Relation Name Status Comments Father Alive Mother Alive Social History Tobacco Use Types Packs/Day Years Used Date Smoking Tobacco: Never Smokeless Tobacco: Never Tobacco Cessation:Counseling Given: Yes Personal Safety Answer Date Recorded Getting School Help Needed Not on file 10/29 Sex and Gender Information Value Date Recorded Sex Assigned at Not on file Legal Sex Male 11:19 AM CDT Gender Identity Transgender Female 06/23/2021 11 :30 PM CDT Sexual Orientation Bisexual 01/05/2021 10 :30 AM EMPLOYMENT SPECIALIST Obstetrics History Last Filed Vital Signs Vital Sign Reading Time Taken Comments Blood Pressure 127/74 07/22/2024 1:25 PM CDT Pulse 88 07/22/2024 1:25 PM CDT Temperature 36.7 C (98.1 F) 07/22/2024 1:25 PM CDT Respiratory Rate - - Oxygen Saturation - - Inhaled Oxygen Concentration - - Weight 79.9 kg (176 lb 1.6 oz) 07/22/2024 1:25 P M CDT Height 167.6 cm (5' 6) 07/22/2024 1:25 PM CDT Body Mass Index 28.42 07/22/2024 1:25 PM CDT Plan of Treatment Health Maintenance Due Date Last Done Comments Depression Screening 1998 Hepatitis C Screening 1998 DTaP/Tdap/Td Vaccine (1 - Tdap) 2009 Varicella Vaccines (1 of 2 - 13+ 2-dose series) 2011 HPV Vaccines (1 - 3-dose series) 2013 Hepatitis B Screening 2016 Regular Well Visit/Exam 18-64 2016 Influenza Vaccine (#1) 2025 08/19/2020 Pneumococcal vaccine <65 Aged Out No longer eligible based on patient's age to complete this topic Insurance [facility] Care Teams Powerhouse Attendant Relationship Specialty Start Date End Date Wilbur Loera MD PCP - General Family Medicine 08/19/20
[2025-07-23 13:16] LABS: Hematocrit 36.1 % (42.0-52.0); Hemoglobin 11.7 g/dL (14.0-18.0); Immature Granulocyte Percent A 0.3 % (0-0.5); Lymphocytes Absolute Auto 2.09 K/mm3 (0.9-3.2); Mean Corpuscular HGB Conc 32.4 g/dl (32-36); Mean Corpuscular Hemoglobin 29.5 pg (26-34); Mean Corpuscular Volume 90.9 fl (80-100); Nucleated Red Blood Cells Absolute Auto 0.000 K/mm3 (0.0-0.012); Nucleated Red Blood Cells Perc 0.0 % (0.0-0.2); Platelet Count Result 346 k/mm3 (150-375); Red Blood Count 3.97 M/mm3 (4.6-6.20); White Blood Count 8.7 K/mm3 (4.5-10.0)
[2025-07-23 13:53] LABS: Alanine Aminotransferase 19 U/L (6-50); Albumin Level 4.4 g/dL (3.5-5.1); Alkaline Phosphatase 77 U/L (38-126); Anion Gap 7 mmol/L (4-12); Aspartate Amino Transferase 46 U/L (17-59); Bilirubin,Total 0.2 mg/dL (0.2-1.3); Blood Urea Nitrogen 10 mg/dL (9-20); Calcium 9.2 mg/dL (8.4-10.2); Carbon Dioxide 25 mmol/L (22-30); Chloride 104 mmol/L (98-107); Cholesterol 181 mg/dL (0-200); Estimated Glomerular Filt Rate > 60; Glucose 94 mg/dL (65-110); HDL Direct 64 mg/dL; Potassium 4.7 mmol/L (3.4-5.0); Sodium 136 mmol/L (137-145); Total Protein 7.7 g/dL (6.3-8.2); Triglycerides 97 mg/dL (<150)
[2025-07-23 14:23] LABS: Ferritin 29.50 ng/mL (17.9-464)
[2025-07-23 14:52] LABS: Vitamin B12 390.0 pg/mL (239-931)
[2025-07-24 15:09] LABS: Folate, Hemolysate 343.0 ng/mL (Not Estab.); Folate, RBC 912 ng/mL (>498); Hematocrit 37.6 % (37.5-51.0)
== END 2025-07-23 11:30 | disposition home or self-care (01) ==
LOC: ANHGOSHLAB 11:29
PROVIDERS: PCP Family Medicine; Visit Provider Family Medicine
DX: D64.9 Anemia, unspecified (principal); Z11.3 Encounter for screening for infections with a predominantly sexual mode of transmission; Z00.00 Encounter for general adult medical examination without abnormal findings
CPT/HCPCS: 36415; 80053; 80061; 82607; 82728; 82747; 85025; 86803